=== PATIENT | male | born 1955 | race Caucasian/White ===

== ENCOUNTER 2021-03-22 05:42 | Outpatient (CLI) | payer BC ==
[~2021-03-22] VITALS: Ht 175.3 cm; Wt 84.1 kg
[~2021-03-22 05:42] MED LIST: ACHD5005 PO; BENA1TAB14 PO; CLIN150C20 PO; IBUP-30 PO; PRD10T PO
[2021-03-23] MEDS ORDERED: BENA1TAB14 PO (09:18)
[2021-03-23] MEDS ORDERED: PANT40TA52 PO (09:49)
[2021-03-23] MEDS ORDERED: CETI10TA49 PO (09:49)
[2021-03-23] MEDS ORDERED: ASPI-999 PO (09:49)
[2021-03-23] MEDS ORDERED: ROSU10TA28 PO (09:49)
[2021-03-23] MEDS ORDERED: OMG1KC PO (09:49)
== END 2021-03-23 09:51 | disposition home or self-care (01) ==
LOC: PREOP 05:42
PROVIDERS: ATTEND Surgery
DX: Z01.818 Encounter for other preprocedural examination (principal)

== ENCOUNTER 2021-03-29 09:52 | Day surgery (SDC) | payer BC ==
[~2021-03-29] VITALS: Ht 175.3 cm; Wt 84.1 kg
[2021-03-29] VITALS (11 sets, daily range): BP systolic 88–134; BP diastolic 53–98
[~2021-03-29 09:52] MED LIST changes: +ASPI-999 PO; +CETI10TA49 PO; +OMG1KC PO; +PANT40TA52 PO; +ROSU10TA28 PO
[2021-03-29] MEDS ORDERED: HYDR-3817 PO (10:04)
--- NOTE | 2021-03-29 10:04 | Discharge Inst-Surgical ---
D/C Lap Instructions-KIDO Reconcile Patient Problems Problems Reviewed?: Yes New, Converted, or Re-Newed RX: RX on Chart Follow Up Appt in 2 weeks Activity as tolerated No driving for 24 hours No driving while on pain medications Incentive Spirometry use every 2 hours while awake Regular Diet Symptoms to Report: Fever over 101 degree F, Nausea/Vomiting Infection Signs and Symptoms to report: Increased redness, Foul odor of wound, Increased drainage Bathing instructions: May shower Operative Area Clean/Dry; Keep incision clean/dry If any problems/questions: Contact your physician or go to Emergency Room OZZIE CASTRO APRN Mar 29, 2021 10:04
--- NOTE | 2021-03-29 10:05 | Progress Note-Pre Operative ---
Pre-Operative Progress Note H&P Reviewed The H&P was reviewed, patient examined and no changes noted. Date Seen by Provider: Mar 29, 2021 Time Seen by Provider: 10:05 Date H&P Reviewed: Mar 29, 2021 Time H&P Reviewed: 10:00 Pre-Operative Diagnosis: Right inguinal hernia and screening colonoscopy OZZIE CASTRO APRN Mar 29, 2021 10:05
[2021-03-29] MEDS ORDERED: ACETAMINOPHEN 325 MG TABLET PO PRN (10:15)
[2021-03-29] MEDS ORDERED: ONDANSETRON 4 MG/2 ML (SDV) Z0FRAN IVP PRN ×2 (10:15→14:45)
[2021-03-29] MEDS ORDERED: morphine INJ 10 MG/ML 1ML (SYR OR VIAL) IVP PRN (10:15)
[2021-03-29] MEDS ORDERED: HYDROcodone/APAP 5 MG/325 MG (LORTAB) TAB PO ONE (10:15)
[2021-03-29] MEDS ORDERED: ceFAZolin 2 GM IV Premixed 50 ML IV ONE ×2 (10:30→13:30)
[2021-03-29] MEDS: LACTATED RINGERS 1,000 ML IV PRN ×3 (10:51→14:48)
[2021-03-29] MEDS ORDERED: ceFAZolin 2 GM IV Premixed 50 ML ONE (11:02)
[2021-03-29] MEDS ORDERED: LIDOCAINE/EPI 1%-1:200,000 (XYLOCAINE) 30 ML VIAL ONE (12:19)
[2021-03-29] MEDS ORDERED: LIDOCAINE PF 2% 5 ML (XYLOCAINE) VIAL ONE (12:41)
[2021-03-29] MEDS ORDERED: NEOSTIGMINE 3 MG/3 ML VIAL ONE (12:41)
[2021-03-29] MEDS ORDERED: ROCURONIUM 10 MG/ML 5 ML SYRINGE IV ONE (12:41)
[2021-03-29] MEDS ORDERED: GLYCOPYRROLATE 0.2 MG/ML (ROBINUL) 2 ML VIAL ONE ×2 (12:41→13:40)
[2021-03-29] MEDS ORDERED: fentaNYL INJ 100 MCG/2 ML AMP ONE ×2 (12:41→15:17)
[2021-03-29] MEDS ORDERED: MIDAZOLAM 2 MG/2 ML (VERSED) VIAL ONE (12:41)
[2021-03-29] MEDS ORDERED: ONDANSETRON 4 MG/2 ML (SDV) Z0FRAN ONE ×2 (12:41→14:52)
[2021-03-29] MEDS ORDERED: proPOfol 200 MG/20 ML (DIPRIVAN) VIAL IV ONE (12:41)
[2021-03-29] MEDS ORDERED: HYDROmorphone 2 MG/ML VIAL (DILAUDID) ONE ×2 (14:19→14:44)
--- NOTE | 2021-03-29 14:19 | Progress Note-Post Operative ---
Post-Operative Progess Note Surgeon (s)/Clinical Pharmacy Specialist (s) Surgeon Dr. Sigifredo Collazo M.D. Clinical Pharmacy Specialist: Johan Castro APRN Pre-Operative Diagnosis Right inguinal hernia and screening colonoscopy Post-Operative Diagnosis Right indirect inguinal hernia, Normal colon and rectum Procedure & Operative Findings Date of Procedure 03/29/21 Procedure Performed/Findings Laparoscopic right inguinal hernia repair with mesh and colonoscopy Anesthesia Type GET Estimated Blood Loss Estimated blood loss (mL): Minimal Specimens/Packing Specimens Removed NONE JOHAN CASTRO TUNNEL ELASTIC OPERATOR ZIGZAG Mar 29, 2021 14:19
[2021-03-29] MEDS ORDERED: SEVOFLURANE (ULTANE) 15 ML INHAL SOLN ONE (14:23)
[2021-03-29] MEDS ORDERED: HYDROmorphone 2 MG/ML VIAL (DILAUDID) IV ONE (14:45)
[2021-03-29] MEDS ORDERED: morphine INJ 10 MG/ML 1ML (SYR OR VIAL) IVP ONE (14:45)
--- NOTE | 2021-03-29 15:15 | Anesthesia-General Post-Op ---
General Patient Condition Mental Status/LOC: Same as Preop Cardiovascular: Satisfactory Nausea/Vomiting: Absent Respiratory: Satisfactory Pain: Controlled Complications: Absent Post Op Complications Complications None Follow Up Care/Instructions Patient Instructions None needed. Anesthesia/Patient Condition Patient Condition Patient is doing well, C/O pain which is to be expected, stable vital signs, no apparent adverse anesthesia problems. CRISTAL MCKINNEY DO Mar 29, 2021 15:15
[2021-03-29] MEDS ORDERED: fentaNYL INJ 100 MCG/2 ML AMP IVP ONE (15:30)
[2021-03-29] MEDS ORDERED: KETOROLAC 30 MG/ML VIAL IVP ONE (15:45)
[2021-03-29] MEDS ORDERED: HYDROcodone/APAP 5 MG/325 MG (LORTAB) TAB ONE (15:46)
[2021-03-29] MEDS ORDERED: KETOROLAC 30 MG/ML VIAL ONE (15:47)
--- NOTE | 2021-03-29 19:18 | OPERATIVE REPORT ---
DATE OF SERVICE: 03/29/2021 ATTENDING PRIMARY CARE PHYSICIAN: Dr. Umang Dunlap. PREOPERATIVE DIAGNOSES: Symptomatic reducible right inguinal hernia and screening colonoscopy. POSTOPERATIVE DIAGNOSES: Right indirect inguinal hernia. Normal colon and rectum. PROCEDURES PERFORMED: Laparoscopic right inguinal hernia repair with mesh. Colonoscopy. SURGEON: Morales Collazo MD. MINING ENGINEERING TECHNOLOGIST: Johan Dietz APRN. ANESTHESIA: General endotracheal. ESTIMATED BLOOD LOSS: Minimal. FINDINGS: Right indirect inguinal hernia. Normal colon and rectum. DISPOSITION: The patient tolerated the procedure well. INDICATIONS FOR PROCEDURE: The patient is a 65-year-old female, who developed a bulge as well as pain in the right inguinal region, two to three months ago. He states that he is otherwise eating well and having normal bowel movements. Upon examination, he was found to have a right inguinal hernia, which was reducible; however, tender to palpation. This gentleman is also in need of a screening colonoscopy. He states that his last one was around 10 years ago. He states that this was normal. He states that he is not experiencing any major issues with diarrhea nor constipation as well as no red blood per rectum nor any dark tarry stools. He also does not report any family history of colon cancer. DESCRIPTION OF PROCEDURE: The patient was brought to the operating room and laid supine on the table. After adequate IV pain and sedative medications and general endotracheal intubation, the abdomen was prepped and draped in a standard surgical fashion. A 0.5% Marcaine with epinephrine was used to anesthetize the overlying skin in the infraumbilical rim and a crescent shaped skin incision was made using a 15 blade. The abdominal wall was then retracted anteriorly with a sharp towel clamp and a Veress needle inserted with a low opening pressure of 0 mmHg and the abdomen was then insufflated to 15 mmHg pressure. The Veress needle was removed and a 10 mm XL trocar was placed followed by a 10 mm 45-degree angle laparoscope visualizing the peritoneal cavity. A four-quadrant abdominal exploration was performed. There was a right indirect inguinal hernia identified. There was no left inguinal hernia component. Small bowel and colon appeared normal. Under direct visualization, we then proceeded to place bilateral 5 mm ports after the skin and peritoneal lining were anesthetized using 0.5% Marcaine with epinephrine and a transverse skin incision was made using a 15 blade. The patient was then placed in a Trendelenburg position. The peritoneal lining was then opened using a Sonicision towards the conjoined tendon and inguinal ligament laterally. We then proceeded medially until the Tip's ligament was identified. We then proceeded with inferior dissection of the hernia sac, identifying the cord and its surrounding contents and sparing these structures. Good hemostasis was observed and a 3DMax polypropylene mesh was then placed into the defect and tacked to the Tip's ligament medially and inguinal ligament laterally using absorbable tacks. The peritoneal lining was then placed over the mesh and a few absorbable tacks were placed to hold this in place with visualization of good hemostasis. The 10 mm port site fascia and peritoneum were then closed under direct visualization using a Michael-Joselo device and 0 Vicryl suture. The abdomen was desufflated and remaining ports were removed. All skin incisions were closed using 4-0 Monocryl running subcuticular sutures. Wounds were then cleaned and covered with Dermabond. The patient was then placed in a frog legged position. A digital rectal examination was performed. Mild stage I external and internal hemorrhoids were identified, which were not actively edematous nor inflamed and no bleeding. Normal sphincter tone was felt and there were no palpable masses. Prostate gland was palpable and appeared normal. The endoscope was then intubated into the anus and rectum gently insufflated. The endoscope was then advanced through the valves of Infante of the rectum with no polyps or any neoplasms identified. Through the sigmoid colon, no diverticulosis identified. The endoscope was then advanced into the remainder of the descending, transverse and ascending colon to the cecum. These segments were normal. There were no polyps or any neoplasms identified throughout the colon or rectum. The endoscope was then slowly withdrawn while taking a second look and suctioning of residual air with no additional findings. The patient tolerated the procedure well. We will start IV normal pain medication as well as a clear liquid diet. Once he is tolerating clears, has good pain control with oral pain medications, and ambulating well, we will discharge him home. He will be instructed to do no heavy lifting or exertion for the next two weeks and to wear the scrotal support for the same duration. We will also recommend a high fiber diet with at least 25 grams of fiber daily as well as significant amounts of water to promote soft stools on a daily basis. If he is asymptomatic, he does not need another colonoscopy for another 10 years. Job ID: [id number] DocumentID: [id number] Dictated Date: 03/29/2021 14:33:29 Barge Captain Date: 03/29/2021 19:16:59 Dictated By: MORALES COLLAZO MD
== END 2021-03-29 19:20 ==
LOC: SDC 09:52
PROVIDERS: ATTEND Surgery
DX: Z12.11 Encounter for screening for malignant neoplasm of colon (principal); K40.90 Unilateral inguinal hernia, without obstruction or gangrene, not specified as recurrent; I10 Essential (primary) hypertension; K21.9 Gastro-esophageal reflux disease without esophagitis; Z87.891 Personal history of nicotine dependence; Z79.899 Other long term (current) drug therapy; Z79.82 Long term (current) use of aspirin
CPT/HCPCS: 45378; 49650; 87081; C1781

== ENCOUNTER 2021-04-08 13:10 | Emergency (ER) | payer BC ==
[~2021-04-08] VITALS: Ht 175 cm; Wt 81.6 kg
[~2021-04-08 13:10] MED LIST changes: +HYDR-3817 PO
[2021-04-08] MEDS ORDERED: fentaNYL INJ 100 MCG/2 ML AMP IVP ONE (13:30)
[2021-04-08] MEDS ORDERED: LIDOCAINE UROJET 2% GEL 10 ML PKG TOP ONE (13:30)
[2021-04-08 13:54] LABS: BILIRUBIN,URINE NEGATIVE (NEGATIVE); CLARITY,URINE CLEAR; COLOR,URINE YELLOW; GLUCOSE, URINE (UA) NEGATIVE (NEGATIVE); KETONES,URINE NEGATIVE (NEGATIVE); LEUKOCYTE ESTERASE ,URINE NEGATIVE (NEGATIVE); NITRITE,URINE NEGATIVE (NEGATIVE); PROTEIN,URINE NEGATIVE (NEGATIVE)
[2021-04-08 14:02] LABS: BACTERIA,URINE NEGATIVE /HPF; RBC,URINE 0-2 /HPF
[2021-04-08 14:44] LABS: BASOPHILS # (AUTO) 0.1 10^3/uL (0.0-0.1); BASOPHILS % (AUTO) 1 % (0-10); EOSINOPHILS # (AUTO) 0.1 10^3/uL (0.0-0.3); EOSINOPHILS % (AUTO) 1 % (0-10); HEMATOCRIT 45 % (40-54); HEMOGLOBIN 14.6 g/dL (13.3-17.7); LYMPHOCYTES # (AUTO) 2.1 10^3/uL (1.0-4.0); LYMPHOCYTES % (AUTO) 19 % (12-44); MEAN CORPUSCULAR HEMOGLOBIN 30 pg (25-34); MEAN CORPUSCULAR HGB CONC 32 g/dL (32-36); MEAN CORPUSCULAR VOLUME 93 fL (80-99); MONOCYTES # (AUTO) 0.7 10^3/uL (0.0-1.0); MONOCYTES % (AUTO) 6 % (0-12); NEUTROPHILS % (AUTO) 73 % (42-75); PLATELET COUNT 350 10^3/uL (130-400); WHITE BLOOD COUNT 10.9 10^3/uL (4.3-11.0)
[2021-04-08 14:55] LABS: ALBUMIN 4.5 GM/DL (3.2-4.5); BILIRUBIN,TOTAL 0.6 MG/DL (0.1-1.0); CALCIUM 10.3 MG/DL (8.5-10.1); CREATININE SERUM 1.1 MG/DL (0.60-1.30); POTASSIUM 3.8 MMOL/L (3.6-5.0); TOTAL PROTEIN 7.8 GM/DL (6.4-8.2)
--- NOTE | 2021-04-08 15:04 | Diagnostic Imaging Report ---
EXAM: Abdomen, flat upright/decub. INDICATION: Lower abdominal pain. COMPARISON: CT abdomen and pelvis without contrast 02/01/2016. FINDINGS: Large amount of stool throughout most of the colon and rectum. Nonspecific small bowel gas pattern. No suspicious radiopaque densities. No free intraperitoneal air. IMPRESSION: 1. No acute radiographic findings in the abdomen. 2. Large amount of stool throughout most of the colon and rectum suggesting constipation. Dictated by: Dictated on workstation # [id number]
--- NOTE | 2021-04-08 15:09 | ED Abdominal Pain ---
General Chief Complaint: Abdominal/GI Problems Stated Complaint: ABD PAIN Nursing Triage Note: Pt ambulatory to ED c/o lower abd pain onsest today. Pt also c/o possbile urinary retention and constipation. Pt has hernia surgery a week ago Source of Information: Patient, Old Records Exam Limitations: No Limitations History of Present Illness Date Seen by Provider: Apr 08, 2021 Time Seen by Provider: 13:22 Initial Comments This 65-year-old gentleman presents to the emergency room with severe lower abdominal pain about 10 days after having an inguinal hernia repair with mesh. Dr. Collazo is his surgeon. He reports constipation as well with no bowel movement in the last 2 days despite taking multiple doses of stool softeners every day. He denies nausea or vomiting. He admits to difficulty urinating and inability to completely empty his bladder with voids. He denies any prior bladder symptoms. Allergies and Home Medications Allergies Coded Allergies: No Known Drug Allergies (Unverified , 03/29/21) Patient Home Medication List Home Medication List Reviewed: Yes Aspirin (Aspirin) 81 Mg Tab.chew, 81 MG PO DAILY, (Reported) Entered as Reported by: BRANDI GLEZ on 03/23/21 0949 Benazepril/Hydrochlorothiazide (Benazepril-Hctz 20-12.5 mg Tab) 1 Each Tablet, 1 TAB PO DAILY, (Reported) Entered as Reported by: BRANDI GLEZ on 03/23/21 0918 Cetirizine HCl (Zyrtec) 10 Mg Tablet, 10 MG PO DAILY, (Reported) Entered as Reported by: BRANDI GLEZ on 03/23/21 0949 Hydrocodone/Acetaminophen (Hydrocodone-Acetamin 7.5-325) 1 Each Tablet, 1 EACH PO Q4H PRN for PAIN-BREAKTHROUGH Prescribed by: OZZIE CASTRO on 03/29/21 1004 Hydrocodone/Acetaminophen (Hydrocodone-Acetamin 10-325 mg) 1 Each Tablet, 1 EACH PO Q4H PRN for PAIN-BREAKTHROUGH Prescribed by: ARASELI MAY on 04/08/21 1533 [place] 3 Polyunsat Fatty Acids (Fish Oil 1,000 mg Capsule) 1,000 Mg Cap, 1,000 MG PO DAILY, (Reported) Entered as Reported by: BRANDI GLEZ on 03/23/21 0949 Pantoprazole Sodium (Pantoprazole Sodium) 40 Mg Tablet.dr, 40 MG PO DAILY, (Reported) Entered as Reported by: BRANDI GLEZ on 03/23/21 09 Polyethylene Glycol 3350 (Miralax) 119 Gm Powder, 17 GM PO TID Prescribed by: ARASELI MAY on 04/08/21 1532 Rosuvastatin Calcium (Rosuvastatin Calcium) 10 Mg Tablet, 10 MG PO DAILY, (Reported) Entered as Reported by: BRANDI GLEZ on 03/23/21 09 Tamsulosin HCl (Flomax) 0.4 Mg Cap, 0.4 MG PO DAILY Prescribed by: ARASELI MAY on 04/08/21 153 Review of Systems Review of Systems Constitutional: no symptoms reported EENTM: No Symptoms Reported Cardiovascular: No Symptoms Reported Gastrointestinal: See HPI Genitourinary: See HPI Musculoskeletal: no symptoms reported Psychiatric/Neurological: No Symptoms Reported Endocrine: No Symptoms Reported Hematologic/Lymphatic: No Symptoms Reported Past Iwlgeqa-Picnwa-Ckjnhd Hx Patient Social History Tobacco Use?: No Substance use?: No Alcohol Use?: No Immunizations Up To Date Tetanus Booster (TDap): Unknown First/Initial COVID19 Vaccinat: AUGUST 2020 Second COVID19 Vaccination Hub[place]: AUGUST 2020 Seasonal Allergies Seasonal Allergies: Yes Past Medical History Surgeries: Yes (veins stripped in left leg, ) Abdominal (Right inguinal hernia repair), Vascular Surgery, Vasectomy Respiratory: No Cardiac: Yes Hypertension Neurological: No Reproductive Disorders: No Sexually Transmitted Disease: No HIV/AIDS: No Genitourinary: No Gastrointestinal: Yes Gastroesophageal Reflux Musculoskeletal: No Endocrine: No HEENT: No Cancer: No Psychosocial: No Integumentary: No Blood Disorders: No Adverse Reaction/Blood Tranf: No Family Medical History No Pertinent Family Hx Physical Exam Vital Signs Vital Signs - First Documented 04/08/21 13:30 Temp 36.6 Pulse 62 Resp 18 B/P (MAP) 113/74 (87) Pulse Ox 99 O2 Delivery Room Air Capillary Refill : Less Than 3 Seconds Height/Weight/BMI Height: 5'9" Weight: 195lbs. 0.0oz. 88.630427po; 26.00 BMI Method:Stated General Appearance: WD/WN, moderate distress HEENT: PERRL/EOMI, normal ENT inspection Neck: normal inspection Respiratory: lungs clear, normal breath sounds, no respiratory distress Cardiovascular: regular rate, rhythm, no edema, no murmur Gastrointestinal: normal bowel sounds, soft, distended, tenderness (Throughout the lower abdomen) Extremities: normal inspection, no pedal edema Neurologic/Psychiatric: clerical adjuster II-XII nml as tested, no motor/sensory deficits, alert, normal mood/affect, oriented x 3 Skin: normal color, warm/dry Progress/Results/Core Measures Results/Orders Lab Results Laboratory Tests Test 04/08/21 13:40 Range/Units White Blood Count 10.9 4.3-11.0 10^3/uL Red Blood Count 4.89 4.30-5.52 10^6/uL Hemoglobin 14.6 13.3-17.7 g/dL Hematocrit 45 40-54 % Mean Corpuscular Volume 93 80-99 fL Mean Corpuscular Hemoglobin 30 25-34 pg Mean Corpuscular Hemoglobin Concent 32 32-36 g/dL Red Cell Distribution Width 12.1 10.0-14.5 % Platelet Count 350 130-400 10^3/uL Mean Platelet Volume 11.0 9.0-12.2 fL Immature Granulocyte % (Auto) 0 % Neutrophils (%) (Auto) 73 42-75 % Lymphocytes (%) (Auto) 19 12-44 % Monocytes (%) (Auto) 6 0-12 % Eosinophils (%) (Auto) 1 0-10 % Basophils (%) (Auto) 1 0-10 % Neutrophils # (Auto) 8.0 H 1.8-7.8 10^3/uL Lymphocytes # (Auto) 2.1 1.0-4.0 10^3/uL Monocytes # (Auto) 0.7 0.0-1.0 10^3/uL Eosinophils # (Auto) 0.1 0.0-0.3 10^3/uL Basophils # (Auto) 0.1 0.0-0.1 10^3/uL Immature Granulocyte # (Auto) 0.0 0.0-0.1 10^3/uL Urine Color YELLOW Urine Clarity CLEAR Urine pH 6.0 5-9 Urine Specific [place] 1.010 L 1.016-1.022 Urine Protein NEGATIVE NEGATIVE Urine Glucose (UA) NEGATIVE NEGATIVE Urine Ketones NEGATIVE NEGATIVE Urine Nitrite NEGATIVE NEGATIVE Urine Bilirubin NEGATIVE NEGATIVE Urine Urobilinogen 0.2 < = 1.0 MG/DL Urine Leukocyte Esterase NEGATIVE NEGATIVE Urine RBC (Auto) NEGATIVE NEGATIVE Urine RBC 0-2 /HPF Urine WBC NONE /HPF Urine Squamous Epithelial Cells NONE /HPF Urine Crystals NONE /LPF Urine Bacteria NEGATIVE /HPF Urine Casts NONE /LPF Urine Mucus NEGATIVE /LPF Urine Culture Indicated NO Sodium Level 137 135-145 MMOL/L Potassium Level 3.8 3.6-5.0 MMOL/L Chloride Level 102 98-107 MMOL/L Carbon Dioxide Level 20 L 21-32 MMOL/L Anion Gap 15 H 5-14 MMOL/L Blood Urea Nitrogen 15 7-18 MG/DL Creatinine 1.10 0.60-1.30 MG/DL Estimat Glomerular Filtration Rate 68 BUN/Creatinine Ratio 14 Glucose Level 131 H 70-105 MG/DL Calcium Level 10.3 H 8.5-10.1 MG/DL Corrected Calcium 9.9 8.5-10.1 MG/DL Total Bilirubin 0.6 0.1-1.0 MG/DL Aspartate Amino Transf (AST/SGOT) 29 5-34 U/L Alanine Aminotransferase (ALT/SGPT) 41 0-55 U/L Alkaline Phosphatase 58 40-136 U/L Total Protein 7.8 6.4-8.2 GM/DL Albumin 4.5 3.2-4.5 GM/DL My Orders Orders - ARASELI ALCANTARA MD Fentanyl Inj (Sublimaze Injection) (04/08/21 13:30) Lidocaine 2% (Urojet) (Xylocaine Urojet) (04/08/21 13:30) Ed Iv/Invasive Line Start (04/08/21 13:28) Rosales Cath (04/08/21 13:28) Ua Culture If Indicated (04/08/21 13:31) Abdomen, Flat & Upright/Decub (04/08/21 14:24) Cbc With Automated Diff (04/08/21 14:25) Comprehensive Metabolic Panel (04/08/21 14:25) Medications Given in ED Current Medications Medications Dose Ordered Sig/Edi Route Start Time Stop Time Status Last Admin Dose Admin Fentanyl Citrate 75 mcg ONCE ONCE IVP 04/08/21 13:30 04/08/21 13:31 DC 04/08/21 13:33 75 MCG Lidocaine HCl 10 ml ONCE ONCE TOP 04/08/21 13:30 04/08/21 13:31 DC 04/08/21 13:49 10 ML Vital Signs/I&O 04/08/21 13:30 Temp 36.6 Pulse 62 Resp 18 B/P (MAP) 113/74 (87) Pulse Ox 99 O2 Delivery Room Air Blood Pressure Mean: 87 Diagnostic Imaging Diagonstic Imaging: Xray Plain Films/CT/US/NM/MRI: abdomen, pelvis Comments KUB and upright x-rays reviewed by me and report reviewed. See report below: NAME: ISELA EPPS [facility] REC#: [id number] PT STATUS: REG ER : 1955 PHYSICIAN: ARASELI ALCANTARA MD ADMIT DATE: 04/08/21/ER Draft Date of Exam:04/08/21 ABDOMEN, FLAT UPRIGHT/DECUB EXAM: Abdomen, flat upright/decub. INDICATION: Lower abdominal pain. COMPARISON: CT abdomen and pelvis without contrast 02/01/2016. FINDINGS: Large amount of stool throughout most of the colon and rectum. Nonspecific small bowel gas pattern. No suspicious radiopaque densities. No free intraperitoneal air. IMPRESSION: 1. No acute radiographic findings in the abdomen. 2. Large amount of stool throughout most of the colon and rectum suggesting constipation. Dictated on workstation # [id number] Dict: 04/08/21 1440 Trans: 04/08/21 1503 [facility] [id number] Interpreted by: DEBORAH REYES MD Electronically signed by: Departure Impression Primary Impression: Urinary retention Additional Impressions: Constipation Qualified Codes: K59.00 - Constipation, unspecified Postoperative pain Disposition: 01 HOME, SELF-CARE Condition: Improved Departure-Patient Inst. Decision time for Depature: 15:26 Referrals: GRACE FLORES MD (PCP/Family) Primary Care Physician Patient Instructions: Constipation in Adults, How to Care for Your Rosales Catheter, Male Add. Discharge Instructions: Observe a clear liquid diet for the next 24 hours. Then consume a diet high in fiber with plenty of fruits, vegetables, and whole grain foods. Drink plenty of clear liquids to stay well-hydrated. Use MiraLAX up to 3 doses per day until you produce a good bowel movement. You may additionally need to use a suppository or enema purchased [id number] to help alleviate constipation in the rectum. You may continue using ibuprofen for short-term pain management. You may use a maximum dose of 600 mg every 6 hours as needed. You may increase your hydrocodone dose to 10 mg every 4 hours as needed per your new prescription. Leave your catheter in place until you follow-up either in the surgery clinic, Dr. Flores's office, or a urologist office next week. The effect of the catheter will be better if you can leave it in for a few days while you allow the urethra to dilate and the Flomax to take effect. Empty your catheter bag frequently and try to keep the bag below the level of your bladder. You should have a follow-up discussion with your primary care provider and/or a urologist within the next couple of weeks regarding further evaluation and treatment of urinary retention. Call with questions or concerns. Return to the ER if you have any worsening symptoms. All discharge instructions reviewed with patient and/or family. Voiced understanding. Scripts Polyethylene Glycol 3350 (Miralax) 119 Gm Powder 17 GM PO TID, #1 EA Fill cap to line. Dissolved in 8 to 12 ounces of clear liquid. Use 3 times daily until a good bowel movement is produced, then use as needed. Prov: ARASELI ALCANTARA MD 04/08/21 Tamsulosin HCl (Flomax) 0.4 Mg Cap 0.4 MG PO DAILY, #30 CAP Prov: ARASELI ALCANTARA MD 04/08/21 ARASELI ALCANTARA MD Apr 08, 2021 15:09
[2021-04-08] MEDS ORDERED: HYDR-3820 PO (15:32)
[2021-04-08] MEDS ORDERED: TMSL.4C PO (15:32)
[2021-04-08] MEDS ORDERED: POLY119P5 PO (15:32)
[2021-04-08 15:49] VITALS: BP 97/64
== END 2021-04-08 15:50 | disposition home or self-care (01) ==
LOC: EDUNIT# 13:10 → ER 13:13
DX: R33.9 Retention of urine, unspecified (principal); K59.00 Constipation, unspecified; G89.18 Other acute postprocedural pain; I10 Essential (primary) hypertension; K21.9 Gastro-esophageal reflux disease without esophagitis; Z79.899 Other long term (current) drug therapy; Z79.82 Long term (current) use of aspirin
CPT/HCPCS: 36415; 51702; 74019; 80053; 81000; 85025

== ENCOUNTER 2021-04-10 12:59 | Emergency (ER) | payer BC ==
[~2021-04-10] VITALS: Ht 175 cm; Wt 81.8 kg
[~2021-04-10 12:59] MED LIST changes: +HYDR-3820 PO; +POLY119P5 PO; +TMSL.4C PO
--- NOTE | 2021-04-10 13:50 | ED General ---
General Chief Complaint: - Reproductive Stated Complaint: CATHETER REMOVAL Nursing Triage Note: AMB TO ROOM WITH MARIE IN PLACE REPORTS HAS MARIE PLACED ON FRIDAY DUE TO UNABLE TO URINATE. HAS HERNIA SURG. HERE TO HAVE MARIE REMOVED. APX 300CC IN MARIE URINE CLEAR. Source of Information: Patient Exam Limitations: No Limitations History of Present Illness Date Seen by Provider: Apr 10, 2021 Time Seen by Provider: 13:30 Initial Comments This 65-year-old gentleman presented to the emergency room 2 days ago with urinary retention, constipation, and postoperative abdominal pain. Marie catheter was placed at that time. He was instructed to follow-up for Marie catheter removal after 48 hours. He was started on Flomax. He was also started on a regimen of MiraLAX for constipation. Patient stated as of this morning it had not worked well for him. He added magnesium citrate which resulted in passage of a large volume of stool. He is feeling better at this time with the exception of the intermittent sharp pain in his right lower abdomen with movement in the region of the hernia repair. He presents today to have his catheter removed. He has been taking Flomax since his last visit. Allergies and Home Medications Allergies Coded Allergies: No Known Drug Allergies (Unverified , 03/29/21) Patient Home Medication List Home Medication List Reviewed: Yes Aspirin (Aspirin) 81 Mg Tab.chew, 81 MG PO DAILY, (Reported) Entered as Reported by: BRANDI GLEZ on 03/23/21 0949 Benazepril/Hydrochlorothiazide (Benazepril-Hctz 20-12.5 mg Tab) 1 Each Tablet, 1 TAB PO DAILY, (Reported) Entered as Reported by: BRANDI GLEZ on 03/23/21 0918 Cetirizine HCl (Zyrtec) 10 Mg Tablet, 10 MG PO DAILY, (Reported) Entered as Reported by: BRANDI GLEZ on 03/23/21 0949 Hydrocodone/Acetaminophen (Hydrocodone-Acetamin 7.5-325) 1 Each Tablet, 1 EACH PO Q4H PRN for PAIN-BREAKTHROUGH Prescribed by: OZZIE CASTRO on 03/29/21 1004 Hydrocodone/Acetaminophen (Hydrocodone-Acetamin 10-325 mg) 1 Each Tablet, 1 EACH PO Q4H PRN for PAIN-BREAKTHROUGH Prescribed by: ARASELI MAY on 04/08/21 1533 [place] 3 Polyunsat Fatty Acids (Fish Oil 1,000 mg Capsule) 1,000 Mg Cap, 1,000 MG PO DAILY, (Reported) Entered as Reported by: BRANDI GLEZ on 03/23/21 0949 Pantoprazole Sodium (Pantoprazole Sodium) 40 Mg Tablet.dr, 40 MG PO DAILY, (Reported) Entered as Reported by: BRANDI GLEZ on 03/23/21 0949 Polyethylene Glycol 3350 (Miralax) 119 Gm Powder, 17 GM PO TID Prescribed by: ARASELI MAY on 04/08/21 1532 Rosuvastatin Calcium (Rosuvastatin Calcium) 10 Mg Tablet, 10 MG PO DAILY, (Reported) Entered as Reported by: BRANDI GLEZ on 03/23/21 0949 Tamsulosin HCl (Flomax) 0.4 Mg Cap, 0.4 MG PO DAILY Prescribed by: ARASELI MAY on 04/08/21 1532 Review of Systems Review of Systems Constitutional: no symptoms reported Gastrointestinal: see HPI Genitourinary: see HPI Skin: no symptoms reported Psychiatric/Neurological: No Symptoms Reported Past [id number] Hx Patient Social History Tobacco Use?: No Substance use?: No Immunizations Up To Date Tetanus Booster (TDap): Unknown First/Initial COVID19 Vaccinat: UNKNOW DATE. 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 Seasonal Allergies Seasonal Allergies: Yes Past Medical History Surgery/Hospitalization HX: HERNIA REPAIR Surgeries: Yes (veins stripped in left leg, ) Abdominal, Vascular Surgery, Vasectomy Respiratory: No Cardiac: Yes Hypertension Neurological: No Reproductive Disorders: No Sexually Transmitted Disease: No HIV/AIDS: No Genitourinary: No Gastrointestinal: Yes Gastroesophageal Reflux Musculoskeletal: No Endocrine: No HEENT: No Cancer: No Psychosocial: No Integumentary: No Blood Disorders: No Adverse Reaction/Blood Tranf: No Family Medical History No Pertinent Family Hx Physical Exam Vital Signs Vital Signs - First Documented 04/10/21 13:05 Temp 36.3 Pulse 53 Resp 18 B/P (MAP) 121/74 (90) Pulse Ox 99 O2 Delivery Room Air Capillary Refill : Less Than 3 Seconds Height, Weight, BMI Height: 5'9" Weight: 195lbs. 0.0oz. [id number]; 26.00 BMI Method:Stated General Appearance: WD/WN, Mild Distress Genital/Rectal: Other (Normal genital exam with catheter in place) Progress/Results/Core Measures Suspected Sepsis SIRS Temperature: Pulse: 53 Respiratory Rate: 18 Blood Pressure 121 /74 Mean: 90 Results/Orders Vital Signs/I&O 04/10/21 04/10/21 13:05 13:54 Temp 36.3 36.3 Pulse 53 53 Resp 18 18 B/P (MAP) 121/74 (90) 121/74 Pulse Ox 99 99 O2 Delivery Room Air Room Air Capillary Refill : Less Than 3 Seconds Blood Pressure Mean: 90 Progress Note : Progress Note Discussed risks and benefits of removing the catheter. Patient would like to remove the catheter especially since his constipation has resolved. Balloon was deflated and catheter was removed. Departure Impression Primary Impression: Urinary obstruction Disposition: HOME, SELF-CARE Condition: Improved Departure-Patient Inst. Decision time for Depature: 13:48 Referrals: GRACE FLORES MD (PCP/Family) Primary Care Physician Patient Instructions: Urinary Retention (DC), Urinary Obstruction Add. Discharge Instructions: Continue to drink plenty of clear liquids and urinate often. You will have some irritation from removal of the catheter. You may have a small amount of blood in your urine for the next couple of voids. This should clear soon. Continue on Flomax as previously prescribed until otherwise directed. Eat a diet high in fiber including plenty of fruits and vegetables and whole grains. This should help prevent constipation. Avoid excessive meats, cheeses, and processed foods. Call with questions or concerns. Return to the ER if you have worsening symptoms including inability to urinate sufficiently or notable pain with urination. All discharge instructions reviewed with patient and/or family. Voiced understanding. Copy Copies To 1: MORALES MORRISON MD, JOSHUA T MD Apr 10, 2021 13:50
[2021-04-10 13:54] VITALS: BP 121/74
== END 2021-04-10 13:54 | disposition home or self-care (01) ==
LOC: EDUNIT# 12:59 → ER 13:00
DX: N13.9 Obstructive and reflux uropathy, unspecified (principal); I10 Essential (primary) hypertension; K21.9 Gastro-esophageal reflux disease without esophagitis; Z79.899 Other long term (current) drug therapy; Z79.82 Long term (current) use of aspirin
CPT/HCPCS: 99281